=== PATIENT | male | born 2000 | race Caucasian/White ===

== ENCOUNTER 2021-07-07 09:34 | Outpatient (RCR) | payer OTHER, BC, SELFPAY ==
[2021-07-07 09:42] VITALS: BMI 34.8
[2021-07-07 09:52] VITALS: BMI 34.8
== END 2021-09-28 14:49 | disposition home or self-care (01) ==
LOC: ANHDMC 09:34
PROVIDERS: PCP Family Medicine Sports Medicine; Visit Provider Family Medicine Sports Medicine
DX: R63.5 Abnormal weight gain (principal); Z71.3 Dietary counseling and surveillance
CPT/HCPCS: 97802